=== PATIENT | male | born 1940 | race Caucasian/White ===

== ENCOUNTER → 2017-04-26 | Day surgery (SDC) | payer MEDICARE, BC ==
[~2017-04-26] VITALS: Ht 188 cm; Wt 75.6 kg
[~2017-04-26] MED LIST: *morphine SULFATE 8 MG/ML PERIprocedure ONLY ONE; AMBI5TAB PO; ASPI500T5 PO; BELLADONNA ALKALOIDS/OPIUM 60 MG SUPP RECTAL ONE; CALC12502 PO; CEPH-459 PO; CETI10CA3 PO; CHLORHEXIDINE GLUCONATE 2 % 1 PACK (2 CLOTHS) TOPICAL PRN; COQ150CA PO; DEXAMETHASONE SOD PHOS 4 MG/ML VIAL IV ONE; DO NOT ADM ANY ANTICOAGULANT DRUGS PRN; EZET10 PO; FISH100020 PO; INSULIN HUMAN REGULAR 1,000 UNITS/10 ML VIAL SQ PRN; LACTATED RINGER'S 1000 ML INJ 1,000 ML IV SCH; LACTATED RINGER'S 1000 ML IV PRN; LIDOCAINE HCL 1% PF 5 ML SYRINGE OTHER ONE; LISI-515 PO; LORA-392 PO; MELA1TAB18 PO; METOPROLOL TARTRATE 25 MG TAB PO PRN; MIDAZOLAM HCL 2 MG/2 ML VIAL IV ONE; MODA2TAB PO; MULT1TAB64 PO; ONDANSETRON HCL 4 MG/2 ML VIAL IV PUSH ONE; ONDANSETRON HCL 4 MG/2 ML VIAL IV PUSH PRN; PERC5TAB12 PO; PHENYLEPH/NS 1000 MCG/10 ML SYR IV ONE; POVIDONE IODINE 5% (ANTISEPSIS KIT) 4 APPLICATIONS EACH NARE PRN; PROPOFOL 200 MG/20 ML AMP IV ONE; PSEU30TA82 PO; ROPI.25 PO; SODIUM CHLORID 0.9% 500 ML IV PRN; TOLT1CAP PO; VARE.5 PO; VITA2000 PO; VITA200C3 PO; VITACAP7 PO; ceFAZolin 2 GM PREMIX 50 ML IV SCH; oxyCODONE/ACETAMINOPHEN 5 MG/325 MG TAB PO PRN
[2017-04-26 12:22] LABS: AUTOMATED NEUTROPHIL # 5.8 TH/MM3 (1.8-7.7); BASOPHIL # 0.1 TH/MM3 (0-0.2); BASOPHIL % 0.7 % (0.0-2.0); EOSINOPHIL # 0.2 TH/MM3 (0-0.4); EOSINOPHIL % 2.3 % (0.0-4.0); HEMATOCRIT 48.5 % (39.0-51.0); HEMO FLAGS DIFF FINAL; LYMPH % 22.9 % (9.0-44.0); MEAN CELL VOLUME 92.3 FL (80.0-100.0); MEAN CORPUSCULAR HGB CONC 34.6 % (32.0-36.0); MONO % 7.6 % (0.0-8.0); NEUT % 66.5 % (16.0-70.0); PLATELET COUNT 197 TH/MM3 (150-450); RED BLOOD COUNT 5.26 MIL/MM3 (4.50-5.90); RED CELL DISTRIBUTION WIDTH 13.5 % (11.6-17.2); WHITE BLOOD COUNT 8.7 TH/MM3 (4.0-11.0)
--- NOTE | 2017-04-26 15:21 | PD.OP ---
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 Operative procedure in detail: Patient was brought to the operating suite and placed supine on the OR table. He was then placed under general anesthesia. He was then repositioned in the dorsal lithotomy position and prepped and draped in normal sterile fashion. After an appropriate timeout was undertaken I proceeded with cystoscopic evaluation utilizing the rigid cystoscope with a 20 [place] sheath and the 30 lens. 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 No other tumors were seen. The prostate was nonobstructing. I then proceeded with exchange of the cystoscope for the resectoscope with the 26 [place] bipolar cutting loop and proceeded with transient resection of this bladder tumor. The tumor itself appeared very superficial in nature. The mucosa adjacent to the bladder tumor as well as around the right ureteral orifice was gently fulgurated with coagulation current. The Elic evacuator was utilized and resected tissue was sent off to pathology. A 18 [place] 10 cc [place] catheter was next placed and connected to gravity drainage. The patient tolerated the procedures without complications and was transferred to the PACU in satisfactory condition. Kirit Gómez MD Apr 26, 2017 15:21
[2017-04-26 17:45] VITALS: BP 166/95; PULSE 84; RESP 16; TEMP 97.8; O2SAT 97
--- NOTE | 2017-04-27 14:28 | EKG ---
Date Performed: 04/26/2017 Time Performed: 12:00:29 PTAGE: 76 years EKG: Sinus rhythm WITH FREQUENT VENTRICULAR PREMATURE COMPLEXES POSSIBLE LEFT ATRIAL ENLARGEMENT INDETERMINATE AXIS RI GHT BUNDLE BRANCH BLOCK ABNORMAL ECG NO PREVIOUS TRACING DOCTOR: Maria D Dill Interpretating Date/Time 04/27/2017 14:24:59
== END | disposition home or self-care (01) ==
LOC: HSDC 09:49
PROVIDERS: ATTEND Urology
DX: C67.4 Malignant neoplasm of posterior wall of bladder (principal); C67.2 Malignant neoplasm of lateral wall of bladder; Z01.810 Encounter for preprocedural cardiovascular examination; Z01.818 Encounter for other preprocedural examination
CPT/HCPCS: 00912; 52234; 85025; 88307; 93005; J2270; J7120; J1100; J2250; J2370; J2405; J3010